=== PATIENT | male | born 1980 | race Native Hawaiian/Other Pacific Islander ===

== ENCOUNTER 2018-03-28 14:52 | Emergency (ER) | payer OTHER ==
[~2018-03-28] VITALS: Ht 177.8 cm; Wt 102.1 kg
[~2018-03-28 14:52] MED LIST: ABILIFY20 MG PO; AMANTADINE100 MG PO; ASEN5SUB2 SL; ATIVAN2 MG PO; BENADRYL 50M50 MG/ML IJ; BENZ1TAB43 PO; BENZTROPINE2 MG PO; BISACODYL5 M1 PO; BUSPIRONE10 MG PO; BUSPIRONE30 MG PO; DIPH50CA30 PO; DIVA500T2 PO; DOCU100C10 PO; DONE5TAB PO; HALO50IN4 IM; HALO5INJ3 IM; HALO5TAB10 PO; HYDR25TA60 PO; HYDR5TAB9 PO; IMODIUM A-D2 M2 PO; LAMICTAL25 MG PO; LEVO-T125 MCG PO; LEVO0.0218 PO; LEVO0.1519 PO; LEXAPRO20 MG PO; LORA1TAB17 PO; LORA2INJ21 INJ; MICRO-K10 MEQ PO; MULT1 PO; NAMENDA10 MG PO; OMEP20CA PO; OMEPRAZOLE20 M1 PO; POTA10CA3 PO; PRAZ1CAP16 PO; PROZAC10 MG PO; RISP50IN IM; TRAM50TA PO; TRILEPTAL300 MG PO; ZIPR20IN IM; ZIPR80CA PO; ZYPREXA ZYDI20 MG PO
[2018-03-28 15:28] LABS: PLATELET COUNT 190 K/uL (142-355)
[2018-03-28 15:34] LABS: POTASSIUM 4.3 mmol/L (3.6-5.2)
[2018-03-28 16:30] VITALS: BP 122/84; TEMP 97.8
[2018-03-28] MEDS ORDERED: PANTOPRAZOLE SO40 M1 PO (17:11)
[2018-03-28] MEDS ORDERED: ARIPIPRAZOLE30 MG PO (17:13)
[2018-03-28] MEDS ORDERED: ESCI10TA PO (17:15)
[2018-03-28] MEDS ORDERED: BUSPIRONE15 MG PO (17:16)
[2018-03-28] MEDS ORDERED: LORA2TAB7 PO (17:16)
[2018-03-28] MEDS ORDERED: IRON325 MG PO (17:17)
[2018-03-28] MEDS ORDERED: NAC600 M1 PO (17:20)
[2018-03-28] MEDS ORDERED: ZIPR20CA PO (17:21)
[2018-03-28] MEDS ORDERED: METAMUCIL0.52 GM PO (17:23)
[2018-03-28] MEDS ORDERED: MAGNSUS68 PO (17:25)
== END 2018-03-28 16:30 | disposition other institution (70) ==
LOC: ED 14:52
PROVIDERS: Emergency Medicine
DX: F28 Other psychotic disorder not due to a substance or known physiological condition (principal); Z04.6 Encounter for general psychiatric examination, requested by authority
CPT/HCPCS: 36415; 80053; 85027; 93005; 99285

== ENCOUNTER 2018-12-25 22:25 | Emergency (ER) | payer OTHER ==
[~2018-12-25] VITALS: Ht 177.8 cm; Wt 105.7 kg
[~2018-12-25 22:25] MED LIST changes: +ARIPIPRAZOLE30 MG PO; +BUSPIRONE15 MG PO; +ESCI10TA PO; +IRON325 MG PO; +LORA2TAB7 PO; +MAGNSUS68 PO; +METAMUCIL0.52 GM PO; +NAC600 M1 PO; +OXCARBAZEPIN300 MG PO; +PANTOPRAZOLE SO40 M1 PO; +ZIPR20CA PO
[2018-12-25 23:00] LABS: PLATELET COUNT 224 K/uL (142-355)
[2018-12-25 23:02] LABS: POTASSIUM 3.5 mmol/L (3.6-5.2)
[2018-12-25 23:52] VITALS: BP 118/71; TEMP 97.8
[2018-12-26] MEDS ORDERED: CLON0.1T16 PO (02:37)
[2018-12-26] MEDS ORDERED: ESCITALOPRAM10 MG PO (02:42)
[2018-12-26] MEDS ORDERED: ESCITALOPRAM5 MG PO (02:44)
[2018-12-26] MEDS ORDERED: ZIPRASIDONE HYD40 MG PO (02:55)
[2018-12-26] MEDS ORDERED: TRILEPTAL150 MG PO (02:57)
[2018-12-26] MEDS ORDERED: PANTOPRAZOLE 40MG TA PO (03:00)
[2018-12-26] MEDS ORDERED: HYDR25TA60 PO (03:02)
[2018-12-26] MEDS ORDERED: BUSPIRONE15 MG PO (03:07)
[2018-12-26] MEDS ORDERED: NAC600 M1 PO (03:10)
== END 2018-12-25 23:52 | disposition other institution (70) ==
LOC: ED 22:25
PROVIDERS: Emergency Medicine
DX: L03.116 Cellulitis of left lower limb (principal); L03.115 Cellulitis of right lower limb; R46.89 Other symptoms and signs involving appearance and behavior; Z04.6 Encounter for general psychiatric examination, requested by authority
CPT/HCPCS: 80053; 84484; 85027; 93005; 99285

== ENCOUNTER 2021-09-22 19:30 | Emergency (ER) | payer OTHER ==
[~2021-09-22] VITALS: Ht 167.6 cm; Wt 110.7 kg
[~2021-09-22 19:30] MED LIST changes: +CLON0.1T16 PO; +DIVA250T2 PO; +ESCITALOPRAM10 MG PO; +ESCITALOPRAM5 MG PO; +PANTOPRAZOLE 40MG TA PO; +TRILEPTAL150 MG PO; +ZIPRASIDONE HYD40 MG PO
[2021-09-22 19:59] LABS: PLATELET COUNT 118 K/uL (142-355)
[2021-09-22 20:08] LABS: POTASSIUM 3.6 mmol/L (3.6-5.2)
[2021-09-22 20:40] VITALS: BP 106/77; TEMP 98.9
[2021-09-22] MEDS ORDERED: FLUPHENAZINE25 MG/ML IM (22:04)
[2021-09-22] MEDS ORDERED: MELATONIN3 M3 PO (22:10)
[2021-09-22] MEDS ORDERED: MIRALAX17 GM PO (22:12)
[2021-09-22] MEDS ORDERED: PROTONIX20 MG PO (22:13)
[2021-09-22] MEDS ORDERED: POT CHLORIDE10 ME1 PO (22:20)
[2021-09-22] MEDS ORDERED: VITAMIN D325 MCG PO (22:22)
[2021-09-22] MEDS ORDERED: SENNOSIDES (SE8.6 MG PO (22:25)
[2021-09-22] MEDS ORDERED: ZIPR20IN IM (22:35)
[2021-09-22] MEDS ORDERED: HALO5INJ3 IM (22:37)
== END 2021-09-22 20:40 | disposition still patient (30) ==
LOC: ED 19:30
PROVIDERS: Emergency Medicine Emergency Medical Services
DX: F03.91 Unspecified dementia, unspecified severity, with behavioral disturbance (principal); Z11.52 Encounter for screening for COVID-19; Z04.6 Encounter for general psychiatric examination, requested by authority
CPT/HCPCS: 36415; 80053; 85027; 87635; 93005; 99283; U0003

== ENCOUNTER 2022-05-10 14:54 | Emergency (ER) | payer OTHER ==
[~2022-05-10] VITALS: Ht 162.6 cm; Wt 77.1 kg
[~2022-05-10 14:54] MED LIST changes: +CHOL100034 PO; +CONGENTIN 1MG TAB PO; +DIVALPROEX500 MG PO; +FLUP25IN8 IM; +FLUPHENAZINE25 MG/ML IM; +LEVO0.0529 PO; +MELATONIN MAXIMU5 MG PO; +MELATONIN3 M3 PO; +MIRALAX 17GM PAK PO; +MIRALAX17 GM PO; +OLANZAPINE10 MG PO; +POT CHLORIDE10 ME1 PO; +PROTONIX20 MG PO; +SENNOSIDES (SE8.6 MG PO; +VITAMIN D325 MCG PO
[2022-05-10 14:57] VITALS: BP 115/80; TEMP 99
[2022-05-10 15:18] LABS: PLATELET COUNT 257 K/uL (142-355)
[2022-05-10 15:38] LABS: POTASSIUM 3.3 mmol/L (3.6-5.2)
[2022-05-10] MEDS ORDERED: DIPHENHYDRAMINE25 M1 PO (18:48)
[2022-05-10] MEDS ORDERED: FLUP25IN8 IM (18:54)
[2022-05-10] MEDS ORDERED: KETO2SHA7 TOP (18:59)
[2022-05-10] MEDS ORDERED: RISP50IN IM (19:03)
[2022-05-10] MEDS ORDERED: VITAMIN D325 MCG PO (19:07)
[2022-05-10] MEDS ORDERED: HALO5TAB10 PO (19:10)
[2022-05-10] MEDS ORDERED: HYDROCORTISONE12 EX (19:11)
[2022-05-10] MEDS ORDERED: HYDROXYZINE HYD25 MG PO (19:13)
[2022-05-10] MEDS ORDERED: ZYPREXA ZYDI10 MG PO (19:14)
[2022-05-10] MEDS ORDERED: VALP250S3 PO (19:15)
[2022-05-10] MEDS ORDERED: LORA2INJ21 INJ (19:17)
[2022-05-10] MEDS ORDERED: HALO5INJ3 PO (19:19)
== END 2022-05-10 16:10 | disposition still patient (30) ==
LOC: ED 14:54
PROVIDERS: Emergency Medicine
DX: F20.89 Other schizophrenia (principal); F84.0 Autistic disorder; F79 Unspecified intellectual disabilities; R45.1 Restlessness and agitation; E87.6 Hypokalemia; Z11.52 Encounter for screening for COVID-19; Z04.6 Encounter for general psychiatric examination, requested by authority
CPT/HCPCS: 80053; 85027; 87635; 93005; 99283; U0003